=== PATIENT | male | born 1940 | race Caucasian/White ===

== ENCOUNTER 2021-07-11 05:56 | Emergency (ER) | payer MEDICARE, OTHER, SELFPAY ==
[2021-07-11 06:11] VITALS: PULSE 53; RESP 18; TEMP 36.6; O2SAT 93; BMI 33.2
[2021-07-11 06:20] VITALS: BP 180/81; PULSE 53; RESP 18; O2SAT 97
--- NOTE | 2021-07-11 06:30 | CTR_ITS ---
PROCEDURE INFORMATION: Exam: CTA Chest With Contrast Exam date and time: 07/11/2021 8:09 AM Age: 80 years old Clinical indication: Pain; Chest pressure; Prior surgery; Surgery date: 6+ months; Surgery type: Stents; Patient HX: HX of prostate and bladder cancer; Additional info: Chest pain TECHNIQUE: Imaging protocol: Computed tomographic angiography of the chest with contrast. 3D rendering (Not supervised by radiologist): MIP and/or 3D reconstructed images were created by the technologist. Radiation optimization: All CT scans at this facility use at least one of these dose optimization techniques: automated exposure control; mA and/or kV adjustment per patient size (includes targeted exams where dose is matched to clinical indication); or iterative reconstruction. Contrast material: OMNIPAQUE 350; Contrast volume: 76 ml; Contrast route: INTRAVENOUS (IV); COMPARISON: CR (CHEST, ) 07/11/2021 6:41 AM RADIATION DOSE METRICS: Total DLP (mGy-cm): 575.8 FINDINGS: Pulmonary arteries: Normal. No pulmonary emboli. Aorta: Unremarkable. No aortic aneurysm. No aortic dissection. Lungs: There is mild subpleural reticulation throughout the lungs, which may reflect changes of mild interstitial lung disease. No focal airspace consolidation. Calcified granulomas in the lungs. Pleural spaces: Unremarkable. No pneumothorax. No pleural effusion. Heart: Heavy coronary artery calcification. Lymph nodes: Unremarkable. No enlarged lymph nodes. Bones/joints: Unremarkable. No acute fracture. Soft tissues: Unremarkable. CT/CT angio chest PE protcl [id number] IMPRESSION: No pulmonary emboli or other acute cardiopulmonary pathology identified.
--- NOTE | 2021-07-11 06:30 | XRR_ITS ---
PROCEDURE INFORMATION: Exam: XR Chest Exam date and time: 07/11/2021 6:41 AM Age: 80 years old Clinical indication: Pain; Chest pressure; Prior surgery; Surgery date: 6+ months; Surgery type: Stents; Additional info: Cp TECHNIQUE: Imaging protocol: XR of the chest. Views: 1 view. COMPARISON: No relevant prior studies available. FINDINGS: Lungs: No focal airspace disease. Pleural spaces: Unremarkable. No pleural effusion. No pneumothorax. Heart/Mediastinum: Cardiomediastinal silhouette is within normal limits. Bones/joints: Unremarkable. XR/XR chest 1V portable [id number] IMPRESSION: No acute cardiopulmonary abnormality.
--- NOTE | 2021-07-11 06:30 | ECG_ITS ---
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 Measurements Intervals [place] Rate: 51 P: -41 [place]: 211 QRS: -4 QRSD: 80 T: 41 QT: 432 QTc: 398 Interpretive Statements SINUS BRADYCARDIA WITH FIRST DEGREE AV BLOCK No previous ECG available for comparison Electronically Signed On 07-11-2021 9:23:29 CDT by Migel Pereyra M.D. [email or web address] regional hospitalPsioxus Therapeuticssumma health [id number] f
[2021-07-11 06:35] VITALS: BP 150/70; PULSE 51; RESP 18; O2SAT 97
[2021-07-11 07:00] LABS: Basophils % 0.1 %; Eosinophils # 0.3 10^3/uL (0.0-0.8); Eosinophils % 2.4 %; Hematocrit 40.2 % (42.0-52.0); Hemoglobin 13.5 g/dL (11.7-16.6); Lymphocytes # 2.5 10^3/uL (0.8-4.8); Lymphocytes % 23.9 %; Mean Corpuscular HGB Conc 33.6 g/dL (30.0-36.0); Mean Corpuscular Hemoglobin 31.4 pg (28.0-34.0); Mean Corpuscular Volume 93.5 fl (80-94); Mean Platelet Volume 10.7 fL (7.4-10.4); Monocytes # 0.8 10^3/uL (0.2-0.9); Monocytes % 7.4 %; Neutrophils # 6.83 10^3/uL (1.8-7.7); Neutrophils % 65.9 %; Nucleated Red Blood Cells % 0 %; Platelet Count 221 10^3/cmm (130-400); Red Cell Distribution Width 12.6 % (12.1-15.1); White Blood Count 10.4 10^3/uL (4.0-10.0)
[2021-07-11 07:22] LABS: Troponin(5th) Baseline 11 ng/L (0-15)
[2021-07-11 07:31] LABS: Alanine Aminotransferase 18 U/L (0-41); Albumin Level 4.1 g/dL (3.5-5.2); Alkaline Phosphatase 90 IU/L (40-130); Anion Gap 12.1 (5-19); Aspartate Amino Transferase 22 U/L (0-40); Blood Urea Nitrogen 22 mg/dL (8-23); Calcium 8.8 mg/dL (8.5-10.5); Carbon Dioxide 26 mmol/L (22-29); Chloride 104 mmol/L (98-107); Creatinine Clr Calc Pharmacy 68.9485; Glucose 94 mg/dL (65-115); NT Pro B Type Natriuretic Pept 236 pg/mL (0-450); Osmolality Calculated 289 mOsm/kg (285-295); Potassium 4.1 mmol/L (3.5-5.1); Sodium 138 mmol/L (136-145); Total Bilirubin 0.7 mg/dL (0.15-1.2); Total Protein 7.1 g/dL (6.6-8.7)
--- NOTE | 2021-07-11 07:34 | W.ED.CHESTPA ---
HPI - Chest Pain General: Chief Complaint: Chest Pain Stated Complaint: Back and chest pressure Time Seen by Provider: 07/11/21 06:29 Source: patient Mode of arrival: ambulatory Limitations: no limitations History of Present Illness: 80-year-old male states he has been having chest pain that radiates to his back since 4 this morning. States pain is been a pressure type pain with a tightness. He has had some shortness of breath as well. He has a history of bladder cancer. He denies any worsening improving factors. Denies any vomiting or diarrhea Associated symptoms: Deny abdominal pain, dyspnea, fever(s), nausea or vomiting Review of Systems Const: Denies: fever(s), chills, body aches or change in appetite Eyes: Denies: blurry vision or eye discomfort ENMT: Denies: throat pain or dental pain Card: Reports: chest pain Resp: Denies: dyspnea GI: Denies: abdominal pain, nausea, vomiting or diarrhea : Denies: dysuria Musc: Denies: neck pain or back pain Skin/Breast: Denies: rash Neuro: Denies: headache(s) Psych: Denies: depression Philippe/Lymph: Denies: easy bruising All/Imm: Denies: urticaria PFSH ED PFSH: Medical History (Updated 07/11/21 @ 09:01 by Emily Vidal MD) Hypertension Social History (Updated 07/11/21 @ 07:34 by Emily Vidal MD) Substance/Drug Use: never Physical Exam Const: COMMON NORMALS: no acute distress, patient oriented x3 and healthy appearing HENMT: COMMON NORMALS: normocephalic and atraumatic HEAD & SCALP: normocephalic and atraumatic Eye: COMMON NORMALS: Equal, round and reactive pupils present and EOMs intact bilaterally PUPIL: Yes Equal, round and reactive pupils present Neck/C-Spine: COMMON NORMALS: full ROM and supple Chest: COMMONS NORMALS: normal inspection of the chest and normal palpation of entire chest wall Resp: COMMON NORMALS: normal respiratory effort, No retractions, No use of accessory muscles and clear to auscultation bilaterally AUSCULTATION: clear to auscultation bilaterally Cardio: COMMON NORMALS: regular rate, regular rhythm and No murmurs present (Cardio) RATE: regular rate RHYTHM: regular rhythm GI: COMMON NORMALS: Normal to inspection, nondistended, normoactive bowel sounds present, Soft to palpation, non-tender and no masses PALPATION: Yes Soft to palpation Extremity: COMMON NORMALS: normal to inspection and full ROM Neuro: COMMON NORMALS: patient oriented x3, moves all extremities and no focal motor deficits Psych: COMMON NORMALS: mental status grossly normal, Normal thought process present and cooperative THOUGHT PROCESS: Normal thought process present Skin: COMMON NORMALS: no rashes or lesions noted and no wounds GENERAL SKIN EXAM: no rashes or lesions noted Course Vital Signs: Vital signs: Vital Signs Temperature 98 F 07/11/21 06:11 Pulse Rate 56 L 07/11/21 08:35 Respiratory Rate 18 07/11/21 08:35 Blood Pressure 150/69 07/11/21 08:35 Pulse Oximetry 94 07/11/21 08:35 MDM - Chest Pain Medical Decision Making Patient presents here with chest pain his pain here is improved is worse with breathing could be pleuritic in nature CT showed no signs of pneumonia or pulmonary embolism. Patient stable for discharge is to follow-up PCP and return if worsening understand agree to plan. Lab Data : 07/11/21 06:18 07/11/21 06:18 Radiology Impressions Chest CTA 07/11/21 06:30 IMPRESSION: No pulmonary emboli or other acute cardiopulmonary pathology identified. Chest X-Ray 07/11/21 06:30 IMPRESSION: No acute cardiopulmonary abnormality. Laboratory Results WBC 10.4 10^3/uL (4.0-10.0) H 07/11/21 06:18 RBC 4.30 10^6/uL (4.1-5.3) 07/11/21 06:18 Hgb 13.5 g/dL (11.7-16.6) 07/11/21 06:18 Hct 40.2 % (42.0-52.0) L 07/11/21 06:18 MCV 93.5 fl (80-94) 07/11/21 06:18 MCH 31.4 pg (28.0-34.0) 07/11/21 06:18 MCHC 33.6 g/dL (30.0-36.0) 07/11/21 06:18 RDW 12.6 % (12.1-15.1) 07/11/21 06:18 Plt Count 221 10^3/cmm (130-400) 07/11/21 06:18 MPV 10.7 fL (7.4-10.4) H 07/11/21 06:18 Neut % (Auto) 65.9 % 07/11/21 06:18 Lymph % (Auto) 23.9 % 07/11/21 06:18 Lagrange % (Auto) 7.4 % 07/11/21 06:18 Eos % (Auto) 2.4 % 07/11/21 06:18 Baso % (Auto) 0.1 % 07/11/21 06:18 Neut # (Auto) 6.83 10^3/uL (1.8-7.7) 07/11/21 06:18 Lymph # (Auto) 2.5 10^3/uL (0.8-4.8) 07/11/21 06:18 Lagrange # (Auto) 0.8 10^3/uL (0.2-0.9) 07/11/21 06:18 Eos # (Auto) 0.3 10^3/uL (0.0-0.8) 07/11/21 06:18 Baso # (Auto) 0.0 10^3/uL (0.0-0.1) 07/11/21 06:18 Nucleated RBC % (auto) 0 % 07/11/21 06:18 Nucleated RBCs # 0.0 /100WBC 07/11/21 06:18 Sodium 138 mmol/L (136-145) 07/11/21 06:18 Potassium 4.1 mmol/L (3.5-5.1) 07/11/21 06:18 Chloride 104 mmol/L (98-107) 07/11/21 06:18 Carbon Dioxide 26 mmol/L (22-29) 07/11/21 06:18 Anion Gap 12.1 (5-19) 07/11/21 06:18 BUN 22 mg/dL (8-23) 07/11/21 06:18 Creatinine 1.1 mg/dL (0.7-1.2) 07/11/21 06:18 GFR Calculation Not Reportable 07/11/21 06:18 Glucose 94 mg/dL (65-115) 07/11/21 06:18 Calculated Osmolality 289 mOsm/kg (285-295) 07/11/21 06:18 Calcium 8.8 mg/dL (8.5-10.5) 07/11/21 06:18 Total Bilirubin 0.7 mg/dL (0.15-1.2) 07/11/21 06:18 AST 22 U/L (0-40) 07/11/21 06:18 ALT 18 U/L (0-41) 07/11/21 06:18 Alkaline Phosphatase 90 IU/L (40-130) 07/11/21 06:18 Troponin T Baseline 11 ng/L (0-15) 07/11/21 06:18 Troponin T 120 Minute 9.54 ng/L (0-15) 07/11/21 08:25 NT-Pro-B Natriuret Pep 236 pg/mL (0-450) 07/11/21 06:18 Total Protein 7.1 g/dL (6.6-8.7) 07/11/21 06:18 Albumin 4.1 g/dL (3.5-5.2) 07/11/21 06:18 Globulin 3.0 g/dL (1.3-4.6) 07/11/21 06:18 EKG Data EKG 1: I personally reviewed and interpreted this EKG as follows: EKG interpretation date: 07/11/21 EKG interpretation time: 06:14 Interpretation: sinus satnam hr [address] or t wave abnormalities qrs 80 qtc 408 EKG 2: I personally reviewed and interpreted this EKG as follows: EKG interpretation date: 07/11/21 EKG interpretation time: 08:28 Interpretation: sinus satnam hr [address] or t wave abnormaliteis qrs 80 qtc 417 Discharge Plan Discharge Patient Disposition: Home Clinical Impression: Chest pain Qualifiers: Chest pain type: unspecified Qualified Code(s): R07.9 - Chest pain, unspecified Discharge Orders: Discharge ED (Routine); Ordered 07/11/21 Ordered By: Emily Vidal Discharge Diet: Advance as tolerated Discharge Activity: Resume usual activity Patient Instructions: Chest Pain (ED) Coding Level of Care Code ED Agricultural Engineering Technicians for Chg Fwd Exam Comprehensive
[2021-07-11] MEDS: iohexol 350 mg/mL 100 mL Btl IV (08:11)
--- NOTE | 2021-07-11 08:30 | ECG_ITS ---
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 Measurements Intervals [place] Rate: 55 P: -2 [place]: 203 QRS: -8 QRSD: 80 T: 24 QT: 428 QTc: 411 Interpretive Statements SINUS BRADYCARDIA Compared to ECG 07/11/2021 06:14:27 First degree AV block no longer present Electronically Signed On 07-11-2021 9:30:41 CDT by Migel Pereyra M.D. [email or web address]
[2021-07-11 08:35] VITALS: BP 150/69; PULSE 56; RESP 18; O2SAT 94
--- NOTE | 2021-07-11 08:38 | PC.NURSE ---
EKG done at 0830 and shown to ER doctor
[2021-07-11 08:57] LABS: Troponin 5 2HR 9.54 ng/L (0-15)
[2021-07-11] MEDS: ketorolac 30 mg/mL INJ 15 MG IVP (09:14)
[2021-07-11 09:19] VITALS: BP 166/76; PULSE 56; RESP 18; TEMP 36.6; O2SAT 96
[2021-07-11 09:23] LABS: Troponin 5 2HR Delta -1.46 ABS# (0-10)
--- NOTE | 2021-07-12 14:36 | DCPLANNER ---
Addendum entered by Stella Troy 07/25/21 06:42: Patient had a follow up appointment scheduled for 07.19.[address] Coffman to establish care - patient did attend appointment. Original Note: Patient called trimming caser asking about getting established with a primary care physician. wireless manager called [facility], spoke with Annabella, gave clinic patients information. A follow up appointment was scheduled for Monday, July 19, 2021 at 10:[address] Coffman. wireless manager called patient and gave him the appointment information.
== END 2021-07-11 09:26 | disposition home or self-care (01) ==
PROVIDERS: Emergency Medicine; Emergency Provider Emergency Medicine
DX: R07.9 Chest pain, unspecified (principal); I10 Essential (primary) hypertension
CPT/HCPCS: 36415; 71045; 71275; 80053; 83880; 84484; 85025; 93005; 96374; 99285; J1885; Q9967

== ENCOUNTER → 2021-09-20 12:12 | Outpatient (BNVA) | payer MEDICARE, OTHER, SELFPAY | PROVIDERS: PCP Family Medicine Adult Medicine; Visit Provider Internal Medicine | DX: I10 Essential (primary) hypertension (principal); E78.5 Hyperlipidemia, unspecified; I25.10 Atherosclerotic heart disease of native coronary artery without angina pectoris; Z87.891 Personal history of nicotine dependence; I25.2 Old myocardial infarction | CPT/HCPCS: 99204 ==

== ENCOUNTER → 2022-01-25 08:27 | Outpatient (BNVA) | payer MEDICARE, OTHER, SELFPAY | PROVIDERS: PCP Family Medicine Adult Medicine; Visit Provider Family Medicine Adult Medicine | DX: I10 Essential (primary) hypertension (principal); I25.10 Atherosclerotic heart disease of native coronary artery without angina pectoris; C61 Malignant neoplasm of prostate; E78.5 Hyperlipidemia, unspecified | CPT/HCPCS: 85025 ==

== ENCOUNTER → 2022-06-20 13:42 | Outpatient (BNVA) | payer MEDICARE, OTHER, SELFPAY | PROVIDERS: PCP Family Medicine Adult Medicine; Visit Provider Internal Medicine | DX: I10 Essential (primary) hypertension (principal); E78.5 Hyperlipidemia, unspecified; I25.10 Atherosclerotic heart disease of native coronary artery without angina pectoris; Z87.891 Personal history of nicotine dependence; Z79.82 Long term (current) use of aspirin | CPT/HCPCS: 99214 ==

== ENCOUNTER 2022-06-21 07:47 | Outpatient (CLI) | payer MEDICARE, OTHER, SELFPAY ==
[2022-06-21 08:32] LABS: Chol HDL Ratio 2.94 mg/dL (1.0-5.00); Cholesterol 144 mg/dL (0-200); HDL Cholesterol 49 mg/dL (60-100); LDL Cholesterol Calculated 69 mg/dL (50-129); LDL HDL Ratio 1.41 RATIO (0.00-3.22); Triglycerides 132 mg/dL (0-150)
== END 2022-06-21 07:48 | disposition home or self-care (01) ==
LOC: LAB 07:51
PROVIDERS: PCP Family Medicine Adult Medicine; Visit Provider Internal Medicine
DX: I10 Essential (primary) hypertension (principal)
CPT/HCPCS: 36415; 80061

== ENCOUNTER → 2023-02-28 14:51 | Outpatient (BNVA) | payer MEDICARE, OTHER, SELFPAY | PROVIDERS: PCP Family Medicine Adult Medicine; Visit Provider Internal Medicine | DX: I10 Essential (primary) hypertension (principal); E78.2 Mixed hyperlipidemia; I25.10 Atherosclerotic heart disease of native coronary artery without angina pectoris; Z87.891 Personal history of nicotine dependence | CPT/HCPCS: 99214 ==

== ENCOUNTER → 2024-06-12 13:09 | Outpatient (BNVA) | payer MEDICARE, OTHER, SELFPAY | PROVIDERS: PCP Family Medicine Adult Medicine; Visit Provider Internal Medicine | DX: I10 Essential (primary) hypertension (principal); I25.10 Atherosclerotic heart disease of native coronary artery without angina pectoris; E78.2 Mixed hyperlipidemia; R07.9 Chest pain, unspecified; R06.09 Other forms of dyspnea | CPT/HCPCS: 99214 ==

== ENCOUNTER 2024-06-26 06:21 | Outpatient (CLI) | payer MEDICARE, OTHER, SELFPAY ==
[2024-06-26 06:29] VITALS: BMI 30.9
--- NOTE | 2024-06-26 06:29 | ECG_ITS ---
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 The perfusion scan will be documented separately. DATA: Baseline heart rate was 56 beats per minute. Baseline blood pressure was 156/83 millimeters of mercury. Target heart rate was 137. Maximum heart rate achieved was 87. which was 63% of the predicted target heart rate. Maximum blood pressure was 164/90 millimeters of mercury. The reason for ending the test was completion of the protocol. The patient did not experience any symptoms. ELECTROCARDIOGRAM: BASELINE: Sinus rhythm. Normal axis. Otherwise, no ST-T changes suggestive of ischemia noted. No arrhythmia noted. EXERCISE: After Lexiscan injection, no ST-T changes suggestive of ischemic noted. Frequent PVCs noted CONCLUSION: Please note due to baseline abnormality of the EKG specificity and sensitivity of the EKG portion of LexiScan MIBI stress test will be low 1. EKG not suggestive of ischemia 2. Lexiscan injection unremarkable. 3. Perfusion scan will be documented separately. Electronically Signed On 07-09-2024 23:17:52 CDT by CAROLINA SCOTT [email or web address]
--- NOTE | 2024-06-26 06:30 | NMCV_ITS ---
NM raul perf SPECT r/s* [id number] Jona Rocha Age: 83 Gender: M : 1940 Exam Date: 06/26/2024 07:30 Ordering Phys: Loco Rivera M.D ([email or web address]) Technologist: ESMER Robins Exam [facility]: [facility] Indications: cp STRESS TEST [facility] IMAGE PROTOCOL Rest/Stress 1 Lexiscan Day Radiopharmaceutical Dose (mCi) Administration Site Administered by Rest: Tc-99m 10.5 IV ESMER Robins Sestamibi Stress:Tc-99m 32.4 IV ESMER Yanes Sestamibi Rest: 26-Jun-2024 60 Discovery 630 Stress: 26-Jun-2024 30 Discovery 630 0.4mg Lexiscan. Images obtained in supine and prone position. SPECT RESULTS Technical Quality: Good Raw Data Analysis: Normal Image Corrections: No attenuation or motion correction applied Summed Stress Score: 5 Summed Rest Score: 6 Summed Difference Score: 3 PERFUSION FINDINGS Small to medium sized areas of moderate intensity, reversible perfusion defects are seen in the apical and mid inferior novoa. This is consistent with small to medium sized areas of ischemia in these territories. FUNCTIONAL RESULTS (calculated via Gated SPECT) Stress Image LV EF (%): 59 Stress EDV (mL):103 TID: 1.23 Stress ESV (mL):42 FUNCTIONAL FINDINGS: There is normal left ventricular systolic function. TID ratio is elevated IMPRESSIONS 1. Abnormal myocardial perfusion imaging with small to medium sized areas of ischemia seen in the mid inferior and apical novoa. 2. LV systolic function is normal 3. TID ratio is elevated Loco Rivera MD (Electronically Signed) Final Date: 28 Jun 2024 11:47 S
[2024-06-26] MEDS: regadenoson 0.4 Mg/5 ml Syringe IVP (07:57)
[2024-06-26] MEDS: aminophylline 25 mg/mL SDV 20 mL IVP ×2 (08:02→08:04)
[2024-06-26 08:08] VITALS: BP 149/78; PULSE 69
== END 2024-06-26 06:22 | disposition home or self-care (01) ==
LOC: CDL 06:23
PROVIDERS: PCP Registered Nurse; Visit Provider Internal Medicine
DX: R07.9 Chest pain, unspecified (principal); R93.1 Abnormal findings on diagnostic imaging of heart and coronary circulation
CPT/HCPCS: 36415; 78452; 93017; 96374; A9500; J0280; J2785

== ENCOUNTER 2024-07-02 15:32 | Outpatient (CLI) | payer MEDICARE, OTHER, SELFPAY ==
[2024-07-02 16:10] LABS: Basophils % 0.2 %; Eosinophils # 0.2 10^3/uL (0.0-0.8); Hematocrit 39.3 % (37-53); Lymphocytes # 2.2 10^3/uL (0.8-4.8); Lymphocytes % 34.1 %; Mean Corpuscular HGB Conc 32.8 g/dL (30-55); Mean Corpuscular Hemoglobin 30.4 pg (27-33); Mean Corpuscular Volume 92.7 fl (82-101); Monocytes # 0.5 10^3/uL (0.2-0.9); Monocytes % 7.6 %; Neutrophils # 3.45 10^3/uL (1.8-7.7); Neutrophils % 54.6 %; Nucleated Red Blood Cells % 0 %; Platelet Count 202 10^3/cmm (157-399); Red Blood Count 4.24 10^6/uL (3.85-5.65); Red Cell Distribution Width 12.7 % (12.1-15.1); White Blood Count 6.31 10^3/uL (3.29-11.43)
[2024-07-02 16:24] LABS: INR 0.81 (0.83-1.21); Prothrombin Time (Patient) 11.8 Seconds (12.0-15.1)
[2024-07-02 16:38] LABS: Anion Gap 16.1 (5-19); Blood Urea Nitrogen 17 mg/dL (8-23); Calcium 8.7 mg/dL (8.5-10.5); Carbon Dioxide 25 mmol/L (22-29); Chloride 104 mmol/L (98-107); Glucose 130 mg/dL (65-115); Osmolality Calculated 295 mOsm/kg (285-295); Potassium 4.1 mmol/L (3.5-5.1); Sodium 141 mmol/L (136-145)
== END 2024-07-02 15:33 | disposition home or self-care (01) ==
LOC: LAB 15:34
PROVIDERS: PCP Registered Nurse; Visit Provider Internal Medicine
DX: I10 Essential (primary) hypertension (principal); R06.09 Other forms of dyspnea; R58 Hemorrhage, not elsewhere classified
CPT/HCPCS: 36415; 80048; 85025; 85610

== ENCOUNTER 2024-07-04 07:16 | Outpatient (CLI) | payer MEDICARE, OTHER, SELFPAY ==
[2024-07-04] VITALS (12 sets, daily range): BP systolic 115–185; BP diastolic 62–83; PULSE 16–56; RESP 14–48; TEMP 36.9; O2SAT 94–99; BMI 30.7
--- NOTE | 2024-07-04 07:30 | XACV_ITS ---
Exam Room: 2 Ht: 183 cm Wt: 103 kg BSA: 2.31 m2 Gender: Male : 1940 Any Known Allergies: Other Exam Priority: Routine Procedure(s): Procedure Description: Diagnostic procedure Procedure Description: Left Heart Catheterization Procedure Description: Left ventriculography Procedure Description: Coronary Angiography Diagnostic Cath Status: Elective Diagnostic Findings * INDICATION: Abnormal stress test/Chest pain/ dyspnea on exertion. * Circumflex has no significant disease. * Left Main: severe 90% calfied distal vessel stenosis, ARNIE: 3 flow. * Ostial Left Anterior Descending: significant 70-80% stenosis, ARNIE: 3 flow. * Proximal Right Coronary Artery: significant 70-80% calcified stenosis, ARNIE: 3 flow. * Coronary angiography shows right dominance. Conclusions 1. There is severe coronary artery disease with three vessel disease. 2. Normal left ventricular systolic function. Ejection fraction of 60%. Recommendations * We will refer patient to [place] for CABG. Interventional RX Recommendation: CABG Diagnostic RX Recommendation: CABG Ventriculography Ejection Fraction: 60.0 % Pressures Phase:Rest AO : 95 / 51 ( 70 ) @ 10:22:00 AM 127 / 49 ( 87 ) @ 10:28:00 AM 127 / 49 ( 91 ) @ 10:28:00 AM LV : 120 / -1 / 13 @ 10:27:00 AM 130 / -5 / 14 @ 10:28:00 AM 127 / -5 / 14 @ 10:28:00 AM Valves Phase:DefaultPhase AV : 0.0 @ 9:35:47 AM AV Mean Gradient: 0.0 @ 9:35:47 AM Clinical Evaluation EBL: 5mL-10mL Procedural Details Procedure Consent Obtained. Pre-Procedure Time Out. Identified patient by full name and date of as verbalized by the patient/guarantor. Does the consent match the physician's order: Yes. Accurate & Complete Informed Consent: Yes. Inpatient/Outpatient History & Physical on Chart: Yes. If H&P is completed, is and addenduem needed: No; If yes, is the addendum complete: N/A. Visualize and Verify Site with Patient/Guarantor: N/A. Relevant Radiology Images available: Yes. Pre-op teaching completed and patient verbalized understanding. The risks, benefits, and alternatives of sedation and/or procedure were discussed by physician. The patient agrees to continue. Procedure started. [facility] Clinical Fraility Score: 4: Vulnerable. Solution Specialist Indications: Worsening Angina. Chest Pain Symptom Assessment: Typical Angina Symptoms. Correct patient, site and procedure confirmed by cath team. Current diagnosis: Chest Pain. PERRLA. Strong, equal hand patrol officer bilaterally. Lungs clear x 5 lobes. IV Site on Arrival: 20 gauge in the right anticubital. IV Fluids: 0.9% NaCl at KVO. 0 mL infused prior to freezer laboratory technician. Pre Procedural Pulses: bilateral dorsalis pedis was 2+. Pre Procedural Pulses: bilateral posterior tibial was 2+. Pre Procedural Pulses: bilateral radial was 3+. Oxygen started at 2liters/min via nasal canula. right groin was prepped with chloroprep then draped in the usual sterile fashion. right radial was prepped with chloroprep then draped in the usual sterile fashion. Baseline sample Acquired. HR: 49 BPM. Physician arrived. Physician scrubbed in. Immediate Pre-Procedure Time Out. Correct Patient: Yes; Correct Procedure: Yes; Correct Site: Yes; Correct Patient Position: Yes; Correct Supplies: Yes; Dried Flammable Prep: Yes; Blood Products Available: N/A;. Lidocaine 1% infiltrated to the right radial. Arterial access obtained. A 5 lebanese TIG catheter in over wire. Wire out. Glidewire inserted. Multiple views taken of left coronary artery. Catheter redirected to the RCA. Multiple views taken of right coronary artery. Catheter removed over the exchange wire. A 5 lebanese Angled Pig catheter in over wire. EDP Sample taken: LV 120/-2,13; HR: 49 BPM; SpO2: 95%. LV gram performed in LUNA @ 10 mL/second for a total of 30 mL. EDP Sample taken: LV 130/-6,14; HR: 61 BPM; SpO2: 96%. Pullback taken: LV 127/-6,14; AO 127/49(87); Mean: 0mmHg, Peak to Peak: 0mmHg, SEP: 7sec/min; HR: 63 BPM; SpO2: 96%. Physician review of cine films. Catheter removed over the exchange wire. Physician scrubbed out. Vital chart was stopped. A TR Band was successful obtaining hemostatsis at the Right Radial artery insertion site. Post Procedure: Pulses reassessed and unchanged. PERRLA. Strong, equal hand patrol officer bilaterally. No VTE prophylaxis required. Medication's Wasted: Lidocaine 1% = 18 mL. Medication's Wasted: Nitro = 49.8 mcg. Medication's Wasted: Heparin = 1000 units. Medication's Wasted: Other = Fentanyl 50 mcg. Total IV fluids: 20 mL. Post-op diagnosis: CAD. Complications: None. Estimated blood loss: 5mL-10mL. Responsiveness - Normal response to verbal stimuli; alert and oriented, PERRLA. Airway - Unaffected, no intervention required; spontaneous ventilation. Circulation: W/N/L, pulses unchanged. Nausea/Vomiting: No. Procedure completed. Patient transferred by stretcher to CPRU. Access Site Site: Right Radial artery Sheath Size: 6 Fr Hemostasis Method: TR Band Hemostasis Success: Successful Procedure Medications Start: 9:11 AM Stop: 9:11 AM Medication: Versed Amount: 1 mg Route: I.V. Start: 9:11 AM Stop: 9:11 AM Medication: Fentanyl Amount: 50 mcg Route: I.V. Start: 9:15 AM Stop: 9:15 AM Medication: Nitrogylcerin Amount: 200 mcg Route: I.A. Start: 9:15 AM Stop: 9:15 AM Medication: Versed Amount: 1 mg Route: I.V. Start: 9:19 AM Stop: 9:19 AM Medication: Heparin Amount: 5000 units Route: I.V. I, the attending physician, have reviewed and verified all procedure medications. Yes, all medications given per verbal order History/Risk Factors Hypertension: Yes Dyslipidemia: No Peripheral Arterial Disease (PAD): No Myocardial Infarction ([place]): Yes Obesity: Yes Renal Disease: No Prior Interventions PCI: Yes CABG: No Valve Surgery: No Report Signatures Finalized by Loco Rivera MD on 07/08/2024 08:52 AM
[2024-07-04] MEDS: diphenhydrAMINE 50 mg Capsule PO (07:45)
--- NOTE | 2024-07-04 08:05 | PC.NURSE ---
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
--- NOTE | 2024-07-04 09:45 | PC.NURSE ---
Received the patient back from the kiln labourer via bed s/p [facility]. A & 0 x 3. panel monitor placed and vital signs obtained. TR band intact to the right wrist. No bleeding or hematoma noted. Palpable radial pulse. No other assessment changes noted from pre cath assessment. Family at bedside. No concerns voiced at this time.
--- NOTE | 2024-07-04 10:45 | PC.NURSE ---
Letting the air out of the TR band per protocol. No other assessment changes noted at this time. Spouse remains at bedside.
--- NOTE | 2024-07-04 11:50 | PC.NURSE ---
TR band off per protocol. site cleansed with warm water and patted dry. no bleeding or hematoma noted. site site with palpable radial pulse. a large band aid was applied to the site and loosely secured with coban. post TR band removal activity restrictions verbally given to the patient and his spouse with their understanding verbalized.
--- NOTE | 2024-07-04 12:01 | P.SS_ITS ---
<Statement entered by Loco Rivera M.D - 07/06/24 13:37> I discussed the patient in detail with the advanced practice practitioner and agree with assessment and plan. Short Stay Summary Providers Date of Admit/Discharge: 07/04/24 Attending Provider: Loco Rivera M.D Primary Care Provider: Anne Marie Caraballo Chief Complaint: R94.39 HPI History of Present Illness Jona Rocha is a 83 year old male with past medical history of CAD post PCI done in [place] in 2007, history of bladder cancer and prostate cancer. He was having chest pain and shortness of breath, had abnormal stress test. Review of Systems Card: Denies: chest pain, palpitations, irregular heart rhythm, edema, swelling of feet/ankles, lightheadedness, syncope, pre-syncope, dyspnea on exertion, orthopnea or leg pain with exertion Resp: Denies: dyspnea, productive cough or non-productive cough GI: Denies: hematochezia : Denies: hematuria Skin/Breast: Reports: surgical incision Philippe/Lymph: Denies: easy bleeding Home Meds/Allergies Home Medications and Allergies Allergies Allergy/AdvReac Type Severity Reaction Status Date / Time codeine Allergy ADR-Nausea Verified 06/12/24 13:40 ragweed pollen Allergy sneezing, Verified 06/12/24 13:40 cough PFSH Acute PFSH: Medical History Obesity (BMI 30.0-34.9) Hyperlipidemia History of broken leg (~1997) Prostate cancer Heart attack (~2007) Hx of bladder cancer Hypertension Surgical History H/O heart artery stent Family History Father CAD (coronary artery disease) Stroke Brother Cancer Sister Cancer Denies family history of Diabetes Social History Smoking and tobacco/nicotine status: former use of tobacco/nicotine Quit status (tobacco/nicotine): has quit using Year quit tobacco: 1958 Former quit date comment: 2 pack per day Alcohol intake: never Substance/Drug Use: never Pets and animals: No Vitals/I&O/Wt Last Vital Signs Temp 98.4 F 07/04/24 08:02 Pulse 47 L 07/04/24 11:30 Resp 14 07/04/24 11:30 BP 124/64 07/04/24 11:30 Pulse Ox 96 07/04/24 11:30 O2 Del Method Room Air 07/04/24 11:30 Weight last 48 hrs Weight 227 lb Physical Exam Const: COMMON NORMALS: no acute distress and patient oriented x3 GENERAL APPEARANCE: cooperative ORIENTATION/CONSCIOUSNESS: Yes awake, Yes oriented to person, Yes oriented to place and Yes oriented to time Chest: COMMONS NORMALS: normal inspection of the chest and normal palpation of entire chest wall CHEST: Yes Symmetrical chest wall rise Resp: COMMON NORMALS: normal respiratory effort, No retractions, No use of accessory muscles and clear to auscultation bilaterally AUSCULTATION: clear to auscultation bilaterally Cardio: COMMON NORMALS: regular rate, regular rhythm, S1 normal heart sound present, S2 normal heart sound present, No gallops present (Cardio), No clicks present (Cardio), No murmurs present (Cardio) and No rub (Cardio) RATE: regular rate RHYTHM: regular rhythm HEART SOUNDS: S1 normal heart sound present and S2 normal heart sound present PERIPHERAL PULSES: radial pulses present positive right 2+ and femoral pulses present positive right 2+ Neuro: COMMON NORMALS: patient oriented x3 and moves all extremities SENSORIUM/ORIENTATION: Yes oriented to person, Yes oriented to place and Yes oriented to time Skin: WOUNDS: Yes surgical site (no hematoma palpable) Details: no odor Hospital Course Discharge Summary He underwent coronary angiogram today, found to have multivessel CAD, severe left main stenosis, significant ostial LAD stenosis, ostial RCA calcified 80% stenosis. He will be referred for CABG as an outpatient. Blood pressure and heart rate have been stable, no complications with right radial cath site. Will continue aspirin, metoprolol, pravastatin until evaluated by CT surgery. Follow-up with cardiology clinic in 7 to 10 days. SSS Data Data Completed and Pending: Pending at discharge Category Date Time Status DATA STEWARD request for service Routin e Exams 07/04/24 07:30 Ordered Discharge Plan Discharge Patient Disposition: Home Prescriptions: No Action aspirin [Adult Low Dose Aspirin] 81 mg tablet,delayed release (DR/EC) 81 mg PO DAILY Qty: 100 3RF ezetimibe 10 mg tablet 10 mg PO DAILY Qty: 90 3RF metoprolol tartrate 25 mg tablet See Rx Instructions .ROUTE .COMPLEX Qty: 45 3RF Dose Instruction: Take 1/2 (one-half) tablet by mouth once daily Rx Instructions: Take 1/2 (one-half) tablet by mouth once daily pravastatin 40 mg tablet See Rx Instructions .ROUTE .COMPLEX Qty: 90 3RF Dose Instruction: Take 1 tablet by mouth once daily Rx Instructions: Take 1 tablet by mouth once daily Discharge Orders: Discharge Order (Routine); Ordered 07/04/24 Ordered By: Leticia Petit Referrals: Anne Marie Caraballo [Primary Care Provider, Family Practice] - 1 week Leticia Petit FNP [Nurse Practitioner, Cardiology] - 2 weeks Diet: Advance as tolerated Activity: Increase activity as tolerated Patient Instructions: Angiogram (DC) Activity Restrictions/Additional Instructions: No lifting over 5 pounds with right arm for the next 4 days. Print Language: Macedonian Attestations Medical Necessity Statement*: Discharge home today Time Spent in Patient Care*: less than 30 min Quality Metrics Clinical Quality Measures: [ No reported AMI, CVA or VTE this stay ] Coding Level of Care Code Acute Code for Chg Fwd
--- NOTE | 2024-07-04 12:18 | W.PM.OPSUD ---
Surgery/Procedure H&P Update DATE OF PROCEDURE: July 04, 2024 DATE H&P PERFORMED: 06/12/24 H&P UPDATE INFORMATION: I have reviewed H&P completed within last 30 days, I have examined patient prior to procedure and No changes to prior documentation PREOP DIAGNOSIS: Worsening dyspnea on exertion/ abnormal stress test PRIMARY INDICATION FOR PROCEDURE: Worsening dyspnea on exertion/ abnormal stress test PLANNED PROCEDURE: Operation Date: 07/04/24 08:30 Proposed Procedures p Cardiac Catheterization - [facility] w/wo LV & Coros(Left) - Loco Rivera M.D Possible percutaneous coronary intervention PATIENT REASSESSED PRIOR TO SEDATION, WITH NO CHANGE NOTED: Yes PHYSICAL EXAM: alert, oriented x 3, clear to auscultation bilaterally and regular rate & rhythm AIRWAY EVAL/ANESTHESIA PLAN: normal airway, ASA III, Local Anesthesia, Risks, benefits & alternatives of sedation and/or procedure discussed and Patient agrees to continue as planned ADDITIONAL INFORMATION: Moderate sedation
--- NOTE | 2024-07-04 12:49 | PC.NURSE ---
Patient discharged home via wheelchair with spouse
--- NOTE | 2024-07-04 13:08 | PM.PROC ---
Procedure Note: Date of procedure: 07/04/24 Pre-procedure diagnosis: Abnormal stress test/Chest pain/ dyspnea on exertion Post-procedure diagnosis: other (Severe multivessel coronary artery disease) Procedure: Severe left main stenosis. Calcified disease. Ostial LAD also has significant disease. Ostial RCA has calcified 80% stenosis Outpatient referral for CABG Estimated blood loss (mL): 10 Complications: None Condition: stable Disposition: same day Coding Level of Care Code Acute Code for Osiel Plunkett
== END 2024-07-04 07:17 | disposition home or self-care (01) ==
PROVIDERS: PCP Registered Nurse; Visit Provider Internal Medicine
DX: I25.10 Atherosclerotic heart disease of native coronary artery without angina pectoris (principal); I10 Essential (primary) hypertension; I25.2 Old myocardial infarction; E66.9 Obesity, unspecified; Z68.30 Body mass index [BMI] 30.0-30.9, adult; Z85.46 Personal history of malignant neoplasm of prostate; Z85.51 Personal history of malignant neoplasm of bladder; E78.5 Hyperlipidemia, unspecified; Z95.5 Presence of coronary angioplasty implant and graft; Z82.49 Family history of ischemic heart disease and other diseases of the circulatory system; Z87.891 Personal history of nicotine dependence; Z79.82 Long term (current) use of aspirin
CPT/HCPCS: 36415; 93458; 99152; 99153; C1769; C1887; C1894; J1644; J2250; J3010; J3490; J7030; J9999; Q0163; Q9967

== ENCOUNTER 2024-07-09 08:09 | Outpatient (CLI) | payer MEDICARE, OTHER, SELFPAY ==
--- NOTE | 2024-07-09 08:30 | USCV_ITS ---
Jona Rocha Age: 83 Gender: M : 1940 Exam Date: 07/09/2024 08:23 Ordering Phys: Loco Rivera M.D ([email or web address]) Technologist: MANNY Exam Location: [facility] [place] Indication: SoB BP: 136 / 88 HR: 47 Rhythm: Sinus Technical Quality: Adequate MEASUREMENTS (Male / Female) Normal Values 2D ECHO LV Diastolic Diameter PLAX 5.0 cm 4.2 - 5.9 / 3.9 - 5.3 cm IVS Diastolic Thickness 0.9 cm 0.6 - 1.0 / 0.6 - 0.9 cm IVS Systolic Thickness 1.9 cm LVPW Diastolic Thickness 0.9 cm 0.6 - 1.0 / 0.6 - 0.9 cm LVPW Systolic Thickness 2.0 cm LVOT Diameter 2.1 cm LV Ejection Fraction 2D Teich 57.6 % LV Ejection Fraction MOD 4C 58.6 % LV Ejection Fraction MOD 2C 53.0 % LV Ejection Fraction 2C AL 55.1 % LA Diameter 3.8 cm RA Systolic Volume 4C AL 19.2 ml RA Systolic Volume 4C MOD 18.6 ml LA Sys Volume AL 53.9 cm cubed LA Sys Volume Index AL 23.3 cm cubed/m squared Aorta at Sinotubular Diameter 2.6 cm IVC Diameter 1.9 cm M-MODE LA Ao Ratio MM 1.7 AV Cusp Separation MM 1.7 cm DOPPLER AV Peak Velocity 118.0 cm/s LVOT Peak Velocity 103.0 cm/s AV Area Cont Eq vti 2.9 cm squared AV Area Cont Eq pk 2.9 cm squared MV Peak Velocity 82.0 cm/s MV Area PHT 2.9 cm squared Mitral E to A Ratio 0.9 TR Peak Velocity 88.0 cm/s TR Peak Gradient 3.1 mmHg TV Peak E Velocity 56.0 cm/s PV Peak Velocity 79.0 cm/s FINDINGS Left Ventricle Left ventricular normal in size. LV systolic function is normal with EF of 50-55%. No regional wall motion abnormalities are seen. Grade 1 diastolic dysfunction. Right Ventricle Normal in size and function Right Atrium Normal in size Left Atrium Normal in size Mitral Valve Structurally normal valve. Mild mitral regurgitation Aortic Valve Grossly normal. No significant stenosis or regurgitation. Tricuspid Valve Insufficient TR jet to calculate RVSP Pulmonic Valve Not well visualized Pericardium Normal Aorta Normal in size IVC Appears to be normal CONCLUSIONS LV systolic function is normal with EF of 50-55% Grade 1 diastolic function Mild mitral regurgitation No comparison studies are available. Loco Rivera MD (Electronically Signed) Final Date: 09 July 2024 10:09 S
== END 2024-07-09 08:10 | disposition home or self-care (01) ==
LOC: RAD 08:10
PROVIDERS: PCP Registered Nurse; Visit Provider Internal Medicine
DX: R06.02 Shortness of breath (principal); R93.1 Abnormal findings on diagnostic imaging of heart and coronary circulation; I34.0 Nonrheumatic mitral (valve) insufficiency
CPT/HCPCS: 93306

== ENCOUNTER → 2024-09-16 12:26 | Outpatient (BNVA) | payer MEDICARE, OTHER, SELFPAY | PROVIDERS: PCP Registered Nurse; Visit Provider Internal Medicine | DX: I10 Essential (primary) hypertension (principal); E78.2 Mixed hyperlipidemia; I25.10 Atherosclerotic heart disease of native coronary artery without angina pectoris; R06.09 Other forms of dyspnea; Z95.1 Presence of aortocoronary bypass graft | CPT/HCPCS: 99214 ==

== ENCOUNTER → 2025-01-14 14:53 | Outpatient (BNVA) | payer MEDICARE, OTHER, SELFPAY | PROVIDERS: PCP Registered Nurse; Visit Provider Internal Medicine | DX: I25.10 Atherosclerotic heart disease of native coronary artery without angina pectoris (principal); I10 Essential (primary) hypertension; E78.2 Mixed hyperlipidemia; Z87.891 Personal history of nicotine dependence | CPT/HCPCS: 99213 ==